=== PATIENT | female | born 1995 | race Caucasian/White ===

== ENCOUNTER 2024-06-01 14:14 | Emergency (ER) | payer SELFPAY ==
[2024-06-01 14:21] VITALS: BP 137/91; PULSE 73; RESP 20; TEMP 98.4; BMI 32.8
[2024-06-01 16:32] LABS: HIV INTERPRETATION NEGATIVE (NEGATIVE)
== END 2024-06-01 15:12 | disposition home or self-care (01) ==
LOC: JERFT 14:14
DX: Z20.2 Contact with and (suspected) exposure to infections with a predominantly sexual mode of transmission (principal)
CPT/HCPCS: 36415; 86803; 87389; 87491; 87591; 99283-25